=== PATIENT | male | born 1970 | race Caucasian/White ===

== ENCOUNTER 2023-11-18 22:13 | Emergency (ER) | payer MEDICAID ==
[~2023-11-18] VITALS: Ht 172.7 cm; Wt 104.0 kg
[2023-11-18 22:29] VITALS: BP 135/89; PULSE 92; RESP 16; TEMP 98.6; O2SAT 100
[2023-11-18] MEDS: NEOMYCIN-POLYMYXIN B-HYDROCORTISONE 1% OTIC SOLN 10ML LEFT EAR ONE (23:41)
[2023-11-19] MEDS ORDERED: CEPH500C2 MT (00:10)
[2023-11-19] MEDS ORDERED: IBUP-2029 MT (00:10)
[2023-11-19] MEDS ORDERED: NEOM10DR11 LEFT EAR (00:10)
[2023-11-19] MEDS: KETOROLAC 60MG/2ML VIAL IM ONE (00:11)
== END 2023-11-19 00:39 | disposition home or self-care (01) ==
LOC: ER 22:13
DX: H60.92 Unspecified otitis externa, left ear (principal); I89.1 Lymphangitis; E78.00 Pure hypercholesterolemia, unspecified; Z98.890 Other specified postprocedural states
CPT/HCPCS: 99283; 96372; J1885